=== PATIENT | female | born 2000 | race Caucasian/White ===

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

== ENCOUNTER 2021-02-11 05:24 | Emergency (ER) | payer BC, OTHER ==
[2021-02-11 07:12] VITALS: BP 108/66
[2021-02-11] MEDS ORDERED: DEXAMETHASONE 10 MG/ML VIAL PO STA (07:13)
[2021-02-11] MEDS ORDERED: IPRATROPIUM/ALBUTEROL 3 ML NEB INH STA (07:13)
[2021-02-11] MEDS ORDERED: CHERRY SYRUP 10 ML UDC PO ONE (07:13)
--- NOTE | 2021-02-11 07:21 | XRAY Report ---
PROCEDURE: Chest 2 View X-Ray INDICATIONS: prod cough, soa X 3 days TECHNIQUE: 2 view(s) of the chest. COMPARISON: None. FINDINGS: Surgical changes and devices: None. Lungs and pleura: No pleural effusions or pneumothorax. Lungs are clear. Mediastinum: Mediastinal contours are normal. Heart size is normal. Bones and chest wall: No suspicious bony abnormalities. Soft tissues appear unremarkable. IMPRESSION: Normal for age, source of current symptoms is not seen. Reviewed by: Moses Lagunas MD on 02/11/2021 7:20 AM PDT Approved by: Moses Lagunas MD on 02/11/2021 7:20 AM PDT Station ID: [id number]
--- NOTE | 2021-02-11 07:53 | ED Physician Documentation ---
History of Present Illness - Stated complaint Stated Complaint: COUGH/CONGESTION - Chief complaint Chief Complaint: Resp - History obtained from History obtained from: Patient - Additonal information Additional information: 20-year-old woman, previously healthy presents with several days of sinus congestion, sore throat, cough productive of clear sputum, and new onset chest tightness and wheezing today. Patient has no personal or family history of asthma. Denies fever chills ear pain. 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 Review of Systems Constitutional: reports: Myalgias, Fatigue. denies: Fever Throat: reports: Sore throat Cardiac: reports: Other (chest tightness) Respiratory: reports: Dyspnea, Cough PD PAST MEDICAL HISTORY - Past Medical History Past Medical History: Yes Psych: Anxiety - Past Surgical History Past Surgical History: Yes HEENT: Other - Present Medications Home Medications: Ambulatory Orders Medication Instructions Recorded Confirmed Albuterol Oral Soln [Ventolin] 2 mg PO Q6H PRN #1 cap 02/11/21 Lessina-28 1 tab PO DAILY 02/11/21 Sertraline HCl 100 mg PO DAILY 02/11/21 02/11/21 - Allergies Allergies/Adverse Reactions: Allergies Allergy/AdvReac Type Severity Reaction Status Date / Time No Known Drug Allergies Allergy Verified 02/11/21 05:38 - Social History Does the pt smoke?: No Smoking Status: Never smoker Does the pt drink ETOH?: Yes Does the pt have substance abuse?: No - Immunizations Immunizations are current?: Yes - POLST Patient has POLST: No PD ED PE NORMAL - Vitals Vital signs reviewed: Yes - General General: Alert and oriented X 3, No acute distress, Well developed/nourished - HEENT HEENT: Atraumatic, PERRL, EOMI, Ears normal, Moist mucous membranes, Other (Significant sinus congestion. Mild injection to posterior oropharynx) - Neck Neck: Supple, no meningeal sign - Cardiac Cardiac: RRR - Respiratory Respiratory: No respiratory distress, Other (Mild bilateral expiratory wheezing) - Derm Derm: Normal color, Warm and dry - Extremities Extremities: No deformity - Neuro Neuro: Alert and oriented X 3 - Psych Psych: Normal mood, Normal affect Results - Vitals Vitals: Vital Signs - 24 hr 02/11/21 02/11/21 02/11/21 05:25 07:10 07:36 Temperature 36.8 C Heart Rate 102 H 92 93 Respiratory 18 18 16 Rate Blood Pressure 124/68 108/66 O2 Saturation 96 97 Oxygen O2 Source Room air PD MEDICAL DECISION MAKING - ED course ED course: 20-year-old woman presented with upper respiratory symptoms and wheezing, improved after nebulizer treatment. Patient appears to have a viral bronchitis. Education given about conservative management. Return precautions given. She can follow-up with her primary doctor. Impression 1.acute viral bronchitis 2.sinusitis Departure - Departure Disposition: Home, Self Care Condition: Good Instructions: Bronchitis Acute Dc Prescriptions: Albuterol Oral Soln [Ventolin] 2 mg PO Q6H PRN #1 cap PRN Reason: Wheezing Comments: You are seen in the emergency department for acute bronchitis likely caused by rhinovirus infection versus other upper respiratory virus. Use a coolmist humidifier at nighttime, get lots of rest, drink 8 to 10 glasses of water daily. Please return to the emergency department if you experience any new or worsening symptoms or have other concerns. Follow-up with your primary doctor. Forms: Activity restrictions
== END 2021-02-11 08:05 | disposition home or self-care (01) ==
LOC: ED 05:24
DX: J20.8 Acute bronchitis due to other specified organisms (principal); J32.9 Chronic sinusitis, unspecified
CPT/HCPCS: 71046; 94640; 99281; 99283; A9270

== ENCOUNTER 2021-10-04 08:00 | Outpatient (CLI) | payer OTHER | END 2021-10-04 23:59 | disposition home or self-care (01) | LOC: LAB.S 08:00 | PROVIDERS: ATTEND Family Medicine | DX: R05.9 Cough, unspecified (principal); J34.89 Other specified disorders of nose and nasal sinuses; Z20.822 Contact with and (suspected) exposure to COVID-19 ==